=== PATIENT | male | born 1935 | race Caucasian/White ===

== ENCOUNTER → 2016-11-21 | Outpatient (CLI) | payer MEDICARE, BC, OTHER ==
[~2016-11-21] MED LIST: UNITHROID200 MCG PO
== END | disposition home or self-care (01) ==
LOC: CDC 10:19
DX: I49.1 Atrial premature depolarization (principal); I49.3 Ventricular premature depolarization; I45.10 Unspecified right bundle-branch block; R94.31 Abnormal electrocardiogram [ECG] [EKG]; E89.0 Postprocedural hypothyroidism; I89.0 Lymphedema, not elsewhere classified; H34.11 Central retinal artery occlusion, right eye
CPT/HCPCS: 93000

== ENCOUNTER → 2017-11-08 | Emergency (ER) | payer BC, OTHER ==
[~2017-11-08] VITALS: Ht 182.9 cm; Wt 122.9 kg
[~2017-11-08] MED LIST changes: +CARAFATE100 MG/ML PO
[2017-11-08 20:30] VITALS: BP 159/93
== END | disposition home or self-care (01) ==
LOC: EME 20:20
DX: R13.10 Dysphagia, unspecified (principal); Z86.73 Personal history of transient ischemic attack (TIA), and cerebral infarction without residual deficits; Z85.038 Personal history of other malignant neoplasm of large intestine; Z87.891 Personal history of nicotine dependence
CPT/HCPCS: 99281; 99283

== ENCOUNTER 2017-12-22 22:02 | Inpatient (IN) | payer OTHER, BC ==
[~2017-12-22] VITALS: Ht 182.9 cm; Wt 118.8 kg
[~2017-12-22 22:02] MED LIST changes: +FISH OIL 1,0001 EAC7 PO; +LAMISIL250 MG PO; +TYLENOL EXTRA500 MG PO; +UNITHROID150 MCG PO; -UNITHROID200 MCG PO; +VITAMIN D31000 UNI2 PO
[2017-12-23] MEDS ORDERED: OMEPRAZOLE20 MG PO (06:46)
[2017-12-23 06:48] VITALS: BP 128/80
[2017-12-23 13:45] VITALS: BP 143/83
[2017-12-23 16:05] VITALS: BP 129/78
[2017-12-23 19:38] VITALS: BP 120/72
[2017-12-24] VITALS (7 sets, daily range): BP systolic 105–127; BP diastolic 55–77
[2017-12-24 06:34] LABS: CHLORIDE 102 MEQ/L (99-109); CREATININE 1.7 MG/DL (0.6-1.3); GFR ESTIMATE (CALCULATED) 41 mL/min/ (58.99-99999); GLUCOSE 144 mg/dL (70-99); POTASSIUM 4.7 MEQ/L (3.7-5.4); SODIUM 138 MEQ/L (136-147); UREA NITROGEN (BUN) 21 mg/dL (9-23)
[2017-12-25 03:40] VITALS: BP 105/89
[2017-12-25 08:24] VITALS: BP 112/59
[2017-12-25] MEDS ORDERED: TRAMADOL HCL50 MG PO (10:35)
[2017-12-25] MEDS ORDERED: OXYCODONE HCL5 MG PO (10:35)
[2017-12-25] MEDS ORDERED: ELIQUIS2.5 MG PO (10:35)
[2017-12-25 11:40] VITALS: BP 128/66
[2017-12-25 15:40] VITALS: BP 110/68
== END 2017-12-25 16:40 | DRG 470 ==
LOC: ENRESERV 22:02 → 2SOUTH 12-23 05:33 → 3WEST 12-23 05:33 → 2SOUTH 12-23 08:59 → ENRESERV 12-23 10:10 → 3WEST 12-23 13:35 → 2SOUTH 12-23 16:16 → 3WEST 12-25 16:40
PROVIDERS: Orthopaedic Surgery
PROC: 0SRD0J9 Replacement of Left Knee Joint with Synthetic Substitute, Cemented, Open Approach (ICD-10-PCS; principal; 2017-12-23)
DX: M17.12 Unilateral primary osteoarthritis, left knee (principal); M24.562 Contracture, left knee; E03.9 Hypothyroidism, unspecified; K21.9 Gastro-esophageal reflux disease without esophagitis; B36.9 Superficial mycosis, unspecified; E66.01 Morbid (severe) obesity due to excess calories; Z68.35 Body mass index [BMI] 35.0-35.9, adult; M06.9 Rheumatoid arthritis, unspecified; Z86.73 Personal history of transient ischemic attack (TIA), and cerebral infarction without residual deficits; Z87.891 Personal history of nicotine dependence; Z96.651 Presence of right artificial knee joint
CPT/HCPCS: 80048; 82948; C1713; J0690; J1815; J1885; J2250; J2405; J2795; J7050; J7120; S0020